=== PATIENT | male | born 1980 | race African-American/Black ===

== ENCOUNTER 2022-09-28 21:12 | Inpatient (IN) | payer MEDICAID ==
[~2022-09-28] VITALS: Ht 175.3 cm; Wt 77.6 kg
[2022-09-28] MEDS ORDERED: ONDANSETRON 4MG ODT PO ONE (22:30)
[2022-09-28] MEDS ORDERED: SODIUM CHLORIDE 0.9% 250 ML IV ONE (23:15)
[2022-09-28 23:22] LABS: CHLORIDE 102 mEq/L (98-107)
[2022-09-28 23:32] LABS: EOSINOPHILS % 1.2 % (0.0-5.0); ETHANOL BLOOD < 10 mg/dL; HEMATOCRIT. 43.3 % (42.0-52.0); HEMOGLOBIN. 13.9 g/dL (14.0-18.0); LYMPHOCYTES % 22.6 % (20.0-50.0); MEAN CORPUSCULAR HEMOGLOBIN 27.1 pg (28.0-32.0); MEAN CORPUSCULAR VOLUME 84.2 fL (80.0-94.0); MEAN PLATELET VOLUME 7.6 fl (7.4-10.4); MONOCYTES % 7.8 % (2.0-8.0); NEUTROPHILS % 67.4 % (40.0-76.0); PLATELET 220 x1000/uL (130-400); RED BLOOD CELL COUNT 5.14 mill/uL (4.7-6.1); RED CELL DISTRIBUTION WIDTH 20.3 % (11.6-14.6)
[2022-09-29 04:05] VITALS: BP 120/79
[2022-09-29 04:10] LABS: *AMPHETAMINES SCREEN URINE NEGATIVE (NEGATIVE); *BARBITURATES SCREEN URINE NEGATIVE (NEGATIVE); *BENZODIAZEPINES SCREEN URINE NEGATIVE (NEGATIVE); *COCAINE SCREEN URINE NEGATIVE (NEGATIVE); CANNABINOID URINE SCREEN NEGATIVE (NEGATIVE); METHADONE URINE SCREEN NEGATIVE (NEGATIVE); OPIATES URINE SCREEN NEGATIVE (NEGATIVE); PHENCYCLIDINE URINE SCREEN NEGATIVE (NEGATIVE)
[2022-09-29] MEDS ORDERED: GUAIFENESIN 200MG/10ML SUGAR FREE UDC PO PRN (05:00)
[2022-09-29] MEDS ORDERED: CLONIDINE 0.1MG TABLET PO PRN (05:00)
[2022-09-29] MEDS ORDERED: IPRATROPIUM/ALBUTEROL 0.5-3(2.5)MG/3ML NEB HHN PRN (05:00)
[2022-09-29] MEDS ORDERED: MAGNESIUM/ALUMINUM HYDROXIDE/SIMETHICONE 30ML UDC PO PRN (05:00)
[2022-09-29] MEDS ORDERED: ACETAMINOPHEN 325MG TABLET PO PRN (05:00)
[2022-09-29] MEDS ORDERED: DOCUSATE SODIUM 100MG CAPSULE PO PRN (05:00)
[2022-09-29] MEDS ORDERED: IOHEXOL-350 100 ML BOTTLE ONE (05:00)
[2022-09-29] MEDS ORDERED: BUME2TAB34 PO (05:36)
[2022-09-29] MEDS ORDERED: COREG PO (05:40)
[2022-09-29] MEDS ORDERED: CRESTOR PO (05:41)
[2022-09-29] MEDS: PANTOPRAZOLE 40MG DR TABLET PO SCH (06:17)
[2022-09-29 08:00] VITALS: BP 125/81
[2022-09-29] MEDS: ASPIRIN 81MG EC TABLET PO SCH (08:44)
[2022-09-29] MEDS: MULTIVITAMINS,THER W-MINERALS TABLET PO SCH (08:44)
[2022-09-29] MEDS: FOLIC ACID 1MG TABLET PO SCH (08:44)
[2022-09-29] MEDS: THIAMINE HCL 100MG TABLET PO SCH (08:44)
[2022-09-29] MEDS: FERROUS SULFATE 325MG TABLET PO SCH (08:44)
[2022-09-29] MEDS: ENOXAPARIN 40MG/0.4ML SYR SUBCUT SCH (08:46)
[2022-09-29 08:57] LABS: CLARITY URINE CLEAR (CLEAR); COLOR URINE YELLOW (YELLOW); KETONES URINE NEGATIVE (NEGATIVE); LEUKOCYTE ESTERASE URINE NEGATIVE (NEGATIVE); NITRITE URINE NEGATIVE (NEGATIVE); OCCULT BLOOD URINE NEGATIVE (NEGATIVE); PROTEIN URINE NEGATIVE (NEGATIVE); UROBILINOGEN URINE 0.2 E.U./dL (0.2-1.0)
[2022-09-29 11:26] LABS: BASOPHILS % 0.6 % (0.0-2.0); EOSINOPHILS % 0.2 % (0.0-5.0); HEMATOCRIT. 41.6 % (42.0-52.0); HEMOGLOBIN. 13.5 g/dL (14.0-18.0); LYMPHOCYTES % 18.3 % (20.0-50.0); MEAN CORPUSCULAR HEMOGLOBIN 27.1 pg (28.0-32.0); MEAN CORPUSCULAR VOLUME 83.6 fL (80.0-94.0); MEAN PLATELET VOLUME 7.3 fl (7.4-10.4); MONOCYTES % 9.1 % (2.0-8.0); NEUTROPHILS % 71.8 % (40.0-76.0); PLATELET 209 x1000/uL (130-400); RED BLOOD CELL COUNT 4.97 mill/uL (4.7-6.1); RED CELL DISTRIBUTION WIDTH 19.9 % (11.6-14.6)
[2022-09-29 11:47] LABS: CHLORIDE 101 mEq/L (98-107)
[2022-09-29 11:53] LABS: CREATINE KINASE MB FRACTION 3.5 ng/mL (0.5-3.6)
[2022-09-29 12:00] VITALS: BP 119/95
[2022-09-29 12:01] LABS: HDL CHOLESTEROL 29 mg/dL (40-59); LDL CHOLESTEROL 56 mg/dL (5-100); PHOSPHORUS 4.1 mg/dL (2.5-4.9); TOTAL IRON BINDING CAPACITY 495 ug/dL (250-450)
[2022-09-29] MEDS: FUROSEMIDE 40MG/4ML VIAL IVP SCH ×2 (12:02→17:06)
[2022-09-29] MEDS: ONDANSETRON HCL 4MG/2ML INJ IV PRN ×2 (12:02→20:47)
[2022-09-29 12:20] LABS: VITAMIN B12 SERUM 672 pg/mL (211-911)
[2022-09-29 12:22] LABS: CREATINE KINASE MB FRACTION 3.4 ng/mL (0.5-3.6)
[2022-09-29 12:50] LABS: FOLIC ACID (FOLATE) SERUM > 20.00 ng/mL (>5.38)
[2022-09-29 14:31] LABS: FERRITIN 35 ng/mL (22-322)
[2022-09-29 16:00] VITALS: BP 117/83
[2022-09-29 20:00] VITALS: BP 120/73
[2022-09-29 20:48] LABS: CREATINE KINASE MB FRACTION 3.7 ng/mL (0.5-3.6)
[2022-09-29] MEDS: LORAZEPAM 2MG/ML CPJ IV PRN (21:14)
[2022-09-30] VITALS: BP 124/80
[2022-09-30 04:00] VITALS: BP 122/85
[2022-09-30] MEDS: PANTOPRAZOLE 40MG DR TABLET PO SCH (06:16)
[2022-09-30 08:00] VITALS: BP 133/82
[2022-09-30 08:09] LABS: BASOPHILS % 0.8 % (0.0-2.0); EOSINOPHILS % 0.7 % (0.0-5.0); HEMATOCRIT. 40.1 % (42.0-52.0); LYMPHOCYTES % 28.9 % (20.0-50.0); MEAN CORPUSCULAR VOLUME 83.2 fL (80.0-94.0); MEAN PLATELET VOLUME 7.7 fl (7.4-10.4); MONOCYTES % 11.9 % (2.0-8.0); NEUTROPHILS % 57.7 % (40.0-76.0); PLATELET 210 x1000/uL (130-400); RED BLOOD CELL COUNT 4.82 mill/uL (4.7-6.1); RED CELL DISTRIBUTION WIDTH 20.2 % (11.6-14.6)
[2022-09-30 08:27] LABS: CHLORIDE 99 mEq/L (98-107)
[2022-09-30] MEDS: FERROUS SULFATE 325MG TABLET PO SCH (08:38)
[2022-09-30] MEDS: MULTIVITAMINS,THER W-MINERALS TABLET PO SCH (08:38)
[2022-09-30] MEDS: THIAMINE HCL 100MG TABLET PO SCH (08:38)
[2022-09-30] MEDS: FOLIC ACID 1MG TABLET PO SCH (08:38)
[2022-09-30] MEDS: CARVEDILOL 6.25 MG TABLET PO SCH ×2 (08:39→20:52)
[2022-09-30] MEDS: FUROSEMIDE 40MG/4ML VIAL IVP SCH ×2 (08:39→17:06)
[2022-09-30] MEDS: ENOXAPARIN 40MG/0.4ML SYR SUBCUT SCH (08:40)
[2022-09-30] MEDS: ASPIRIN 81MG EC TABLET PO SCH (08:41)
[2022-09-30 10:26] LABS: BG BASE EXCESS -3.4 mmol/L (-2.0-2.0); BG FRACTION INSPIRED OXYGEN 28; BG HCO3 ACT 18.9 mmol/L (22.0-26.0); BG OXYGEN SATURATION 89.3 % (92.0-98.5); BG OXYHEMOGLOBIN 87.8 % (94.0-97.0); BG PCO2 27.7 mmHg (35.0-45.0); BG PH 7.452 (7.350-7.450); BG SAMPLE SITE RIGHT RADIAL; BG TOTAL HEMOGLOBIN 15.3 g/dL (12.0-18.0); BG VENT MODE NASAL CANNULA
[2022-09-30 10:27] LABS: BG CARBOXYHEMOGLOBIN 1.3 % (0.5-1.5); BG DEOXYHEMOGLOBIN 10.5 % (0.0-5.0); BG METHEMOGLOBIN 0.4 % (0.0-1.5)
[2022-09-30 12:00] VITALS: BP 106/94
[2022-09-30] MEDS: LORAZEPAM 2MG/ML CPJ IV PRN (12:20)
[2022-09-30] MEDS: ONDANSETRON HCL 4MG/2ML INJ IV PRN (12:21)
[2022-09-30 16:00] VITALS: BP 136/47
[2022-09-30 20:00] VITALS: BP 105/73
[2022-10-01] VITALS (7 sets, daily range): BP systolic 104–125; BP diastolic 68–95
[2022-10-01] MEDS: FAMOTIDINE 20MG TABLET PO SCH ×2 (06:32→17:17)
[2022-10-01] MEDS: THIAMINE HCL 100MG TABLET PO SCH (08:45)
[2022-10-01] MEDS: FERROUS SULFATE 325MG TABLET PO SCH (08:46)
[2022-10-01] MEDS: FOLIC ACID 1MG TABLET PO SCH (08:46)
[2022-10-01] MEDS: ENOXAPARIN 40MG/0.4ML SYR SUBCUT SCH (08:46)
[2022-10-01] MEDS: MULTIVITAMINS,THER W-MINERALS TABLET PO SCH (08:46)
[2022-10-01] MEDS: FUROSEMIDE 40MG/4ML VIAL IVP SCH ×2 (08:46→17:17)
[2022-10-01] MEDS: CARVEDILOL 6.25 MG TABLET PO SCH (08:48)
[2022-10-01] MEDS: ASPIRIN 81MG EC TABLET PO SCH (08:48)
[2022-10-01] MEDS: ONDANSETRON HCL 4MG/2ML INJ IV PRN (15:25)
[2022-10-02 05:33] VITALS: BP 115/59
[2022-10-02] MEDS: FAMOTIDINE 20MG TABLET PO SCH ×2 (06:00→17:49)
[2022-10-02 08:00] VITALS: BP 116/90
[2022-10-02] MEDS: ASPIRIN 81MG EC TABLET PO SCH (08:30)
[2022-10-02] MEDS: FERROUS SULFATE 325MG TABLET PO SCH (08:30)
[2022-10-02] MEDS: THIAMINE HCL 100MG TABLET PO SCH (08:30)
[2022-10-02] MEDS: MULTIVITAMINS,THER W-MINERALS TABLET PO SCH (08:30)
[2022-10-02] MEDS: FOLIC ACID 1MG TABLET PO SCH (08:30)
[2022-10-02] MEDS: ENOXAPARIN 40MG/0.4ML SYR SUBCUT SCH (08:31)
[2022-10-02] MEDS: FUROSEMIDE 40MG/4ML VIAL IVP SCH ×2 (08:31→17:49)
[2022-10-02 12:00] VITALS: BP 113/63
[2022-10-02 16:09] VITALS: BP 107/90
[2022-10-02 20:23] VITALS: BP 118/88
[2022-10-02 23:06] VITALS: BP 130/110
[2022-10-03 01:56] VITALS: BP 122/89
[2022-10-03 03:06] VITALS: BP 117/83
[2022-10-03] MEDS: FAMOTIDINE 20MG TABLET PO SCH ×2 (05:58→18:16)
[2022-10-03 08:00] VITALS: BP 126/88
[2022-10-03 09:49] LABS: BASOPHILS % 0.5 % (0.0-2.0); EOSINOPHILS % 0.9 % (0.0-5.0); HEMATOCRIT. 39.9 % (42.0-52.0); HEMOGLOBIN. 12.9 g/dL (14.0-18.0); LYMPHOCYTES % 18.5 % (20.0-50.0); MEAN CORPUSCULAR HEMOGLOBIN 27.2 pg (28.0-32.0); MEAN CORPUSCULAR VOLUME 84.3 fL (80.0-94.0); MEAN PLATELET VOLUME 7.8 fl (7.4-10.4); MONOCYTES % 10.4 % (2.0-8.0); NEUTROPHILS % 69.7 % (40.0-76.0); PLATELET 202 x1000/uL (130-400); RED BLOOD CELL COUNT 4.73 mill/uL (4.7-6.1); RED CELL DISTRIBUTION WIDTH 20.6 % (11.6-14.6)
[2022-10-03] MEDS: ENOXAPARIN 40MG/0.4ML SYR SUBCUT SCH (09:51)
[2022-10-03] MEDS: MULTIVITAMINS,THER W-MINERALS TABLET PO SCH (09:51)
[2022-10-03] MEDS: ASPIRIN 81MG EC TABLET PO SCH (09:51)
[2022-10-03] MEDS: FUROSEMIDE 40MG/4ML VIAL IVP SCH ×2 (09:52→18:16)
[2022-10-03] MEDS: FERROUS SULFATE 325MG TABLET PO SCH (09:52)
[2022-10-03] MEDS: FOLIC ACID 1MG TABLET PO SCH (09:52)
[2022-10-03] MEDS: THIAMINE HCL 100MG TABLET PO SCH (09:52)
[2022-10-03 09:59] LABS: CHLORIDE 98 mEq/L (98-107)
[2022-10-03 10:04] LABS: PHOSPHORUS 2.9 mg/dL (2.5-4.9)
[2022-10-03 11:06] VITALS: BP 148/73
[2022-10-03 16:00] VITALS: BP 106/78
[2022-10-03 20:00] VITALS: BP 113/86
[2022-10-03] MEDS: IPRATROPIUM/ALBUTEROL 0.5-3(2.5)MG/3ML NEB HHN SCH (22:11)
[2022-10-04] VITALS: BP 124/82
[2022-10-04] MEDS: IPRATROPIUM/ALBUTEROL 0.5-3(2.5)MG/3ML NEB HHN SCH ×2 (02:59→20:38)
[2022-10-04 05:00] VITALS: BP 123/83
[2022-10-04] MEDS: FAMOTIDINE 20MG TABLET PO SCH ×2 (06:31→17:39)
[2022-10-04 08:00] VITALS: BP 125/93
[2022-10-04] MEDS: FUROSEMIDE 40MG/4ML VIAL IVP SCH (09:26)
[2022-10-04] MEDS: FOLIC ACID 1MG TABLET PO SCH (09:27)
[2022-10-04] MEDS: THIAMINE HCL 100MG TABLET PO SCH (09:27)
[2022-10-04] MEDS: FERROUS SULFATE 325MG TABLET PO SCH (09:27)
[2022-10-04] MEDS: ENOXAPARIN 40MG/0.4ML SYR SUBCUT SCH (09:28)
[2022-10-04] MEDS: MULTIVITAMINS,THER W-MINERALS TABLET PO SCH (09:28)
[2022-10-04] MEDS: ASPIRIN 81MG EC TABLET PO SCH (09:29)
[2022-10-04 12:00] VITALS: BP 143/93
[2022-10-04 16:00] VITALS: BP 136/93
[2022-10-04 20:00] VITALS: BP 117/86
[2022-10-04] MEDS: FUROSEMIDE 40MG TABLET PO SCH (20:16)
[2022-10-05] VITALS: BP 116/85
[2022-10-05] MEDS: IPRATROPIUM/ALBUTEROL 0.5-3(2.5)MG/3ML NEB HHN SCH (02:04)
[2022-10-05 04:00] VITALS: BP 118/80
[2022-10-05] MEDS: FAMOTIDINE 20MG TABLET PO SCH (05:50)
[2022-10-05 08:00] VITALS: BP 112/85
[2022-10-05 08:40] VITALS: BP 118/80
[2022-10-05] MEDS: THIAMINE HCL 100MG TABLET PO SCH (08:45)
[2022-10-05] MEDS: ASPIRIN 81MG EC TABLET PO SCH (08:45)
[2022-10-05] MEDS: FUROSEMIDE 40MG TABLET PO SCH (08:45)
[2022-10-05] MEDS: FOLIC ACID 1MG TABLET PO SCH (08:45)
[2022-10-05] MEDS: FERROUS SULFATE 325MG TABLET PO SCH (08:45)
[2022-10-05] MEDS: ENOXAPARIN 40MG/0.4ML SYR SUBCUT SCH (08:45)
[2022-10-05] MEDS: MULTIVITAMINS,THER W-MINERALS TABLET PO SCH (08:45)
== END 2022-10-05 10:15 | disposition home or self-care (01) | DRG 194 ==
LOC: ER 21:12 → MICUSO 09-29 02:02 → ENRESERV 09-29 02:58 → 3WST 09-29 04:05
PROVIDERS: ADMIT Internal Medicine Nephrology; ATTEND Internal Medicine Nephrology
DX: I11.0 Hypertensive heart disease with heart failure (principal); J96.01 Acute respiratory failure with hypoxia; N17.9 Acute kidney failure, unspecified; E44.1 Mild protein-calorie malnutrition; D63.8 Anemia in other chronic diseases classified elsewhere; E87.1 Hypo-osmolality and hyponatremia; I50.43 Acute on chronic combined systolic (congestive) and diastolic (congestive) heart failure; I42.9 Cardiomyopathy, unspecified; F15.90 Other stimulant use, unspecified, uncomplicated; Z87.891 Personal history of nicotine dependence; Z59.00 Homelessness unspecified; Z91.199 Patient's noncompliance with other medical treatment and regimen due to unspecified reason
CPT/HCPCS: 36415; 36600; 71045; 71275; 80048; 80053; 80061; 80305; 80320; 81003; 82375; 82550; 82553; 82607; 82728; 82746; 82805; 83036; 83540; 83550; 83735; 83880; 84100; 84425; 84439; 84443; 84484; 85025; 85379; 93005; 93306; 93970; 97161; 97166; 99285; J1650; J1940; J2060; J2405; Q0162; Q9967; G0480